=== PATIENT | male | born 1970 | race Two or more races ===

== ENCOUNTER 2021-12-13 22:46 | Emergency (ER) | payer OTHER ==
[~2021-12-13] VITALS: Ht 152.4 cm; Wt 102.1 kg
[~2021-12-13 22:46] MED LIST: ADVAIR 2501 DISK W/1 IH; BUSPAR5 MG; OMEPRAZOLE10 MG PO; SINGULAIR10 MG PO; WELLBUTRIN100 MG
[2021-12-14] MEDS ORDERED: KETO10TA2 PO (01:21)
== END 2021-12-14 01:36 ==
LOC: ER 22:46
DX: S43.401A Unspecified sprain of right shoulder joint, initial encounter (principal); S63.501A Unspecified sprain of right wrist, initial encounter; V49.9XXA Car occupant (driver) (passenger) injured in unspecified traffic accident, initial encounter; Y93.89 Activity, other specified; Y92.9 Unspecified place or not applicable; S13.9XXA Sprain of joints and ligaments of unspecified parts of neck, initial encounter; S39.012A Strain of muscle, fascia and tendon of lower back, initial encounter

== ENCOUNTER 2023-03-10 08:40 | Outpatient (CLI) | payer OTHER ==
[~2023-03-10 08:40] MED LIST changes: +KETO10TA2 PO
== END 2023-03-10 08:43 | disposition home or self-care (01) ==
LOC: LAB 08:40
PROVIDERS: ATTEND Urology
DX: R97.21 Rising PSA following treatment for malignant neoplasm of prostate (principal)